=== PATIENT | male | born 1940 | race Caucasian/White ===

== ENCOUNTER → 2016-12-07 | Outpatient (CLI) | payer OTHER ==
[2015-05-15 12:28] VITALS: BP 148/66
--- NOTE | 2016-12-07 11:40 | NM ---
HISTORY: Abdominal pain. Study: Nuclear medicine HIDA scan with ejection fraction Comparison:None. Technique: Multiple scintigraphic images of the abdomen were obtained the intravenous administration of 5.4 mCi of technetium labeled Choletec. Following distention of the gallbladder with radiotracer a bottle of Ensure was given. An estimated gallbladder ejection fraction was calculated based on this physiologic response. Findings: Homogeneous uptake of radiotracer is seen throughout the liver. The intrabiliary ductal system is o bserved normally. The common hepatic and common bile duct grossly appear unremarkable with normal b iliary-bowel transit. The gallbladder is observed to fill normally. After the administration of Ensure, a normal gallbladder ejection fraction of 36% (normal > 35%) is observed. IMPRESSION: 1. Normal hepatobiliary imaging scan. 2. Normal gallbladder ejection fraction. Reported By:
== END ==
LOC: RAD 08:49
PROVIDERS: ATTEND Nurse Practitioner Family
DX: R10.11 Right upper quadrant pain (principal); R10.31 Right lower quadrant pain; R11.0 Nausea; R63.0 Anorexia; K21.9 Gastro-esophageal reflux disease without esophagitis
CPT/HCPCS: 78227

== ENCOUNTER → 2016-12-13 | Outpatient (CLI) | payer OTHER ==
[2015-05-15 12:28] VITALS: BP 148/66
[~2016-12-13] MED LIST: NS 100 ML IV 100 ML IV ONE
--- NOTE | 2016-12-13 10:53 | CT ---
HISTORY: Weight loss Study: CT abdomen pelvis with contrast Comparison: December 12, 2013 Technique: Axial post-contrast images with coronal and sagittal reformats. Dose reduction procedures were used with MA/kv adjusted for body size. Findings: The lung bases are clear. The liver, spleen, adrenal glands, and pancreas are within normal limits. No opaque stones are visible within the gallbladder. The kidneys are unobstructed and without stones or masses. There is a left renal cyst present. Additionally there is an 8.7 millimeter lesion proje cting laterally off the lower pole of the left kidney which does not meet the criteria for a simple cyst. However retrospectively it is unchanged when compared with the prior examination 3 years [facility] and is likely benign. Renal protocol CT may be of further diagnostic value if clinically indicate d. No enlarged intraperitoneal or retroperitoneal lymphadenopathy is identified. Scattered nonenlarg ed nodes are present. There are no findings suggestive of diverticulitis or colitis. Calcific athero sclerotic change is present in a nondilated abdominal aorta once again there is noted to be a stenos is of the aortic lumen just above the bifurcation with the luminal diameter measuring 7 millimeters which is slightly decreased when compared to 7.7 millimeters on the prior examination. Examination o f the pelvis demonstrated no evidence for pelvic masses, pelvic fluid, or pelvic lymphadenopathy. No bladder abnormality is identified. No lytic or blastic skeletal lesions are identified. IMPRESSION: 8.7 millimeter lesion projecting laterally from the lower pole left kidney which does not meet the c riteria for simple cyst but is totally unchanged when compared with the prior examination 3 years ea rlier likely indicating benignity. Atherosclerotic disease contributing to a stenosis of the distal abdominal aorta with a maximum diam eter of 7 millimeters as compared to 7.7 millimeters on the prior examination. Reported By:
== END | disposition home or self-care (01) | DRG 392 ==
LOC: RAD 08:34
PROVIDERS: ATTEND Nurse Practitioner Family
DX: R10.11 Right upper quadrant pain (principal); R10.31 Right lower quadrant pain; R11.0 Nausea; R63.4 Abnormal weight loss; R63.0 Anorexia; K21.9 Gastro-esophageal reflux disease without esophagitis
CPT/HCPCS: 74177; A4222

== ENCOUNTER → 2017-01-16 | Outpatient (CLI) | payer OTHER ==
[2015-05-15 12:28] VITALS: BP 148/66
[2017-01-16 11:01] LABS: CREATININE 1.4 mg/dL (0.70-1.30)
--- NOTE | 2017-01-16 13:12 | CT ---
HISTORY: Headaches Study: CT brain with and without contrast Comparison: December 25, 2012 Technique: Multiple axial images of the brain were obtained from the skull base to the vertex both before and a fter the administration of IV contrast. Findings: Imaging of the brain demonstrates no intracranial hemorrhage, mass effect, or midline shift. No extr a-axial fluid collection is identified. There is no CT evidence to suggest acute or early subacute i nfarct. Global atrophy is noted with ex vacuo dilatation of the ventricles. The basilar cisterns are patent. Postcontrast images demonstrate no abnormal contrast enhancement within the brain. The bony structures are intact. There are air-fluid levels present within the bilateral maxillary sinuses, r ight greater than left. Mucosal thickening is also identified within the maxillary sinuses, which garcia ve thickened and sclerotic mcdermott as well. These findings are most consistent with acute on chronic s inusitis. IMPRESSION: 1. Normal senescent changes. 2. Acute on chronic sinusitis Reported By:
== END ==
LOC: RAD 10:00
PROVIDERS: ATTEND Nurse Practitioner Family
DX: R51 Headache (principal); R42 Dizziness and giddiness; R11.0 Nausea; R63.4 Abnormal weight loss
CPT/HCPCS: 36415; 70470; 82565; 84520; A4222

== ENCOUNTER 2017-08-16 23:20 | Inpatient (IN) | payer OTHER ==
--- NOTE | 2017-08-16 23:41 | DR.GENAD ---
HPI - HPI Comment HPI Comment: CHEST PAIN PRECORDIA AND SUBSTERNAL AREA TIMES 2 WEEKS INTERMITTENTLY. PAIN PERSISITENT AND MORE INTENSE SINCE 18:00 PM TODAY. PAIN NON RADIATING. CAUSE WEAKNESS AND FATIGUE AND NAUSEA. NO FEVER. SPCABG. LAST CARDIAC CATH 18 MONTHS AGO. - Complaint/Symptoms Chief Complaint Doctors Comments: CHEST PAIN Chief Complaint:: PT C/O MIDSTERNAL CP. NO RADIATION. STATES THAT IT HAS BEEN OFF AND ON FOR 2 WEEKS BUT BECAM PERSISTENT AROUND 1900 TONIGHT. PT STATES HE TOO "6 OR 8 NITRO" AND IS PAIN FREE AT THIS TIME. - Nurses notes reviewed Nurses Notes Review: Yes - Source History Provided: Patient - Mode of Arrival Mode of Arrival: Ambulatory - Timing Onset of Chief Complaint: 08/16/17 - Duration Duration: Constant Duration: Days - Severity Severity: Moderate PMH - PMH Past Medical History: Yes Past Medical History: Hypertension Past Surgical History: Yes Surgical History: CABG/Valve Surgery - Family History History of Family Medical Conditions: Yes Family Medical History: Diabetes Mellitus, Hypertension - Social History Do you use any recreational Drugs:: No - infectious screening Have you traveled outside the country in the last 6 months?: No ROS - Review of Systems Constitutional: Weakness, Fatigue Eyes: No Symptoms Reported ENTM: No Symptoms Reported Respiratoy: Short of Breath. negative: Productive Cough, Wheezing, Hemoptysis Cardiovascular: Chest Pain Gastrointestinal/Abdominal: Nausea Genitourinary: No Symptoms Reported Neurological: No Symptoms Reported Musculoskeletal: No Symptoms Reported Integumentary: No Symptoms Reported Hematologic/Lymphatic: No Symptoms Reported Endocrine: No Symptoms Reported All Other Systems: Reviewed and Negative PE - Vital Signs Vitals: Temperature 98.7 F Pulse Rate [Left Radial] 62 Pulse Rate 77 Respiratory Rate 18 Blood Pressure [Right Arm] 153/73 Blood Pressure 194/83 O2 Sat by Pulse Oximetry 96 - General Limitations: No Limitations General Appearance: Alert - Head Head Exam: Normal Inspection - Eyes Eye exam: Normal Appearance - ENT ENT Exam: Normal External Ear Exam External Ear Exam: Normal External Inspection TM/Canal Exam: Bilateral Normal Nose Exam: Normal Nose Exam Mouth Exam: Normal Inspection Throat Exam: Normal Inspection - Neck Neck Exam: Trachea Midline - Chest Chest Inspection: Symmetric Chest Wall Rise - Respiratory Respiratory Exam: Normal Lung Sounds Bilat Respiratory Exam: Bilateral Rhonchi, Lower Rhonchi - Cardiovascular Cardiovascular Exam: Regular Rate, Normal Rhythm, Normal Heart Sounds - Abdominal Exam Abdominal Exam: Normal Bowel Sounds, Soft. negative: Tenderness - Extremities Extremities Exam: Normal Inspection - Back Back Exam: Normal Inspection - Neurologic Neurological Exam: Alert, Oriented X3 - Psychiatric Psychiatric Exam: Normal Affect, Normal Mood - Skin Skin Exam: Normal Color MDM - Differential Diagnosis Differential Diagnosis: CHEST PAIN Course - Treatment Treatment: SEE ORDERS. - Consultation Consultation Comments: DISCUSS PATIENT WITH DR. MONTEZ. HE WILL ADMIT PATIENT. - Education/Counseling Education/Counseling: Patient, Education Educated On: Diagnosis ROR - Labs Reviewed Laboratory Results Reviewed?: Yes Result Diagrams: 08/16/17 23:35 08/16/17 23:35 Laboratory: WBC 6.9 X10^3/uL (3.6-10.0) 08/16/17 23:35 RBC 4.13 X10^6/uL (4.7-6.0) L 08/16/17 23:35 Hgb 13.2 g/dL (13.5-18.0) L 08/16/17 23:35 Hct 38.4 % (42.0-54.0) L 08/16/17 23:35 MCV 92.8 fL (80.0-100.0) 08/16/17 23:35 MCH 31.9 pg (27.0-34.0) 08/16/17 23:35 MCHC 34.4 g/dL (33.0-35.0) 08/16/17 23:35 RDW 14.5 % (11.6-16.5) 08/16/17 23:35 Plt Count 160 X10^3/uL (150.0-450.0) 08/16/17 23:35 MPV 8.0 fL (7.4-11.0) 08/16/17 23:35 Neut % 68.6 % (42.0-75.0) 08/16/17 23:35 Lymph % 18.3 % (21.0-51.0) L 08/16/17 23:35 [facility] % 8.7 % (0.0-13.0) 08/16/17 23:35 Eos % 3.6 % (0.9-2.9) H 08/16/17 23:35 Baso % 0.8 % (0.2-1.0) 08/16/17 23:35 Neut # 4.8 x10^3/uL (2.2-4.8) 08/16/17 23:35 Lymph # 1.3 X10^3/uL (1.3-2.9) 08/16/17 23:35 [facility] # 0.6 x10^3/uL (0.3-0.8) 08/16/17 23:35 Eos # 0.2 x10^3/uL (0.0-0.2) 08/16/17 23:35 Baso # 0.1 X10^3/uL (0.0-0.1) 08/16/17 23:35 Absolute Nucleated RBC 0.0 /100WBC 08/16/17 23:35 INR Target Range - 08/16/17 23:35 INR 0.99 (0.8-1.3) 08/16/17 23:35 PTT 29.1 SECONDS (22.9-36.5) 08/16/17 23:35 PTT Comment - 08/16/17 23:35 Sodium 141 mmol/L (136-145) 08/16/17 23:35 Corrected Sodium 142 mmol/L (136-145) 08/16/17 23:35 Potassium 4.4 mmol/L (3.5-5.1) 08/16/17 23:35 Chloride 106 mmol/L (98-107) 08/16/17 23:35 Carbon Dioxide 28.6 mmol/L (21-32) 08/16/17 23:35 BUN 22 mg/dL (7-18) H 08/16/17 23:35 Creatinine 1.62 mg/dL (0.70-1.30) H 08/16/17 23:35 Est GFR (MDRD) Af Amer 53 (>60) L 08/16/17 23:35 Est GFR (MDRD) Non-Af 44 (>60) L 08/16/17 23:35 Glucose 130 mg/dL (65-99) H 08/16/17 23:35 Calcium 8.7 mg/dL (8.5-10.1) 08/16/17 23:35 Corrected Calcium TNP 08/16/17 23:35 Total Bilirubin 0.40 mg/dL (0.2-1.0) 08/16/17 23:35 AST 18 Units/L (15-37) 08/16/17 23:35 ALT 26 Units/L (12-78) 08/16/17 23:35 Alkaline Phosphatase 92 Units/L (46-116) 08/16/17 23:35 Creatine Kinase 58 Units/L (39-308) 08/16/17 23:35 CK-MB (CK-2) < 1.0 ng/mL (0-4.0) 08/16/17 23:35 CK/CKMB % Calc 1.7 % (<4) 08/16/17 23:35 Troponin I < 0.02 ng/mL (0-1.5) 08/16/17 23:35 B-Natriuretic Peptide 61.0 pg/mL (0-79) 08/16/17 23:35 Total Protein 6.9 g/dL (6.4-8.2) 08/16/17 23:35 Albumin 3.5 g/dL (3.4-5.0) 08/16/17 23:35 Globulin 3.4 g/dL (2.5-4.5) 08/16/17 23:35 Albumin/Globulin Ratio 1.0 Ratio (1.1-2.1) L 08/16/17 23:35 - XRAY XRAY Interpreted by: Self XRAY Findings: NO ACUTE FINDINGS - EKG Rhythm: NSR - Diagnosis Discharge Problem: Chest pain Qualifiers: Chest pain type: precordial pain Qualified Code(s): R07.2 - Precordial pain - Discharge Plan Disposition: ADMITTED INPATIENT Condition: Stable - Follow ups/Referrals - Instructions
[2017-08-16] MEDS ORDERED: ASPIRIN 81 MG CHEWTAB ONE (23:42)
[2017-08-16 23:44] LABS: BASOPHILS # (AUTO) 0.1 X10^3/uL (0.0-0.1); BASOPHILS % (AUTO) 0.8 % (0.2-1.0); EOSINOPHILS # (AUTO) 0.2 x10^3/uL (0.0-0.2); EOSINOPHILS % (AUTO) 3.6 % (0.9-2.9); HEMATOCRIT 38.4 % (42.0-54.0); HEMOGLOBIN 13.2 g/dL (13.5-18.0); LYMPHOCYTES # (AUTO) 1.3 X10^3/uL (1.3-2.9); LYMPHOCYTES % (AUTO) 18.3 % (21.0-51.0); MEAN CORPUSCULAR HEMOGLOBIN 31.9 pg (27.0-34.0); MEAN CORPUSCULAR HGB CONC 34.4 g/dL (33.0-35.0); MEAN CORPUSCULAR VOLUME 92.8 fL (80.0-100.0); MONOCYTES # (AUTO) 0.6 x10^3/uL (0.3-0.8); MONOCYTES % (AUTO) 8.7 % (0.0-13.0); NEUTROPHILS # (AUTO) 4.8 x10^3/uL (2.2-4.8); NEUTROPHILS % (AUTO) 68.6 % (42.0-75.0); PLATELET COUNT 160 X10^3/uL (150.0-450.0); RED BLOOD COUNT 4.13 X10^6/uL (4.7-6.0); RED CELL DISTRIBUTION WIDTH 14.5 % (11.6-16.5); WHITE BLOOD COUNT 6.9 X10^3/uL (3.6-10.0)
[2017-08-16] MEDS ORDERED: MORPHINE SULFATE INJ 4 MG IVP ONE (23:45)
[2017-08-16] MEDS ORDERED: ZOFRAN INJ 4 MG VIAL IVP ONE (23:45)
[2017-08-16] MEDS ORDERED: ASPIRIN 81 MG CHEWTAB PO SCH (23:45)
[2017-08-16] MEDS ORDERED: ZOFRAN INJ 4 MG VIAL ONE (23:47)
[2017-08-16] MEDS ORDERED: MORPHINE SULFATE INJ 4 MG ONE (23:47)
[2017-08-16] MEDS ORDERED: PEPCID 20 MG IV PREMIX* 20 MG/50 ML BAG IV ONE ×2 (23:47→23:48)
[2017-08-16 23:59] LABS: BLOOD UREA NITROGEN 22 mg/dL (7-18); CALCIUM 8.7 mg/dL (8.5-10.1); CARBON DIOXIDE 28.6 mmol/L (21-32); CHLORIDE 106 mmol/L (98-107); COR NA(FOR HYPERGLY) 142 mmol/L (136-145); CREATININE 1.62 mg/dL (0.70-1.30); SODIUM 141 mmol/L (136-145); TROPONIN I < 0.02 ng/mL (0-1.5); eGFR BLACK RACES 53 (>60); eGFR NON BLACK RACES 44 (>60)
[2017-08-17 00:03] LABS: ALANINE AMINOTRANSFERASE 26 Units/L (12-78); ALBUMIN 3.5 g/dL (3.4-5.0); ALKALINE PHOSPHATASE 92 Units/L (46-116); ASPARTATE AMINO TRANSFERASE 18 Units/L (15-37); CKMB % 1.7 % (<4); CREATINE KINASE 58 Units/L (39-308); CREATINE KINASE MB < 1.0 ng/mL (0-4.0); TOTAL PROTEIN 6.9 g/dL (6.4-8.2)
[2017-08-17] MEDS ORDERED: MORPHINE SULFATE INJ 2 MG INJ IVP PRN (01:10)
[2017-08-17] MEDS ORDERED: ZOFRAN INJ 4 MG VIAL IVP PRN (01:10)
[2017-08-17] MEDS ORDERED: NS 1000 ML 1,000 ML IV SCH (02:00)
[2017-08-17 02:29] VITALS: BMI 23.1
--- NOTE | 2017-08-17 03:26 | RAD ---
Chest AP portable Indication: Flu-like symptoms. Comparison: 08/31/2012. Findings: There is no pneumothorax or effusion. Scarring seen in the left lung base. Mild cardiomegal y sternotomy change noted. Minimal limitations due to overlying monitoring leads. Impression: Chronic lung changes, post CABG with prominent heart size. Reported By:
[2017-08-17 05:35] LABS: ALANINE AMINOTRANSFERASE 22 Units/L (12-78); ALBUMIN 3.1 g/dL (3.4-5.0); ALKALINE PHOSPHATASE 80 Units/L (46-116); ASPARTATE AMINO TRANSFERASE 17 Units/L (15-37); BASOPHILS # (AUTO) 0.1 X10^3/uL (0.0-0.1); BASOPHILS % (AUTO) 0.9 % (0.2-1.0); BLOOD UREA NITROGEN 19 mg/dL (7-18); CALCIUM 8.5 mg/dL (8.5-10.1); CARBON DIOXIDE 28.9 mmol/L (21-32); CHLORIDE 107 mmol/L (98-107); CHOL/HDL RATIO 2.8 (0.0-5.0); CHOLESTEROL 125 mg/dL (0-200); COR CA(FOR HYPOALB) 9.2 mg/dL (8.5-10.1); CREATININE 1.42 mg/dL (0.70-1.30); EOSINOPHILS # (AUTO) 0.2 x10^3/uL (0.0-0.2); EOSINOPHILS % (AUTO) 3.8 % (0.9-2.9); HDL CHOLESTEROL 44 mg/dL (40-60); HEMATOCRIT 35.6 % (42.0-54.0); HEMOGLOBIN 12.3 g/dL (13.5-18.0); LYMPHOCYTES # (AUTO) 1.2 X10^3/uL (1.3-2.9); LYMPHOCYTES % (AUTO) 21.7 % (21.0-51.0); MAGNESIUM 1.9 mg/dL (1.7-2.9); MEAN CORPUSCULAR HEMOGLOBIN 31.9 pg (27.0-34.0); MEAN CORPUSCULAR HGB CONC 34.5 g/dL (33.0-35.0); MEAN CORPUSCULAR VOLUME 92.5 fL (80.0-100.0); MEAN PLATELET VOLUME 8.3 fL (7.4-11.0); MONOCYTES # (AUTO) 0.5 x10^3/uL (0.3-0.8); MONOCYTES % (AUTO) 8.5 % (0.0-13.0); NEUTROPHILS # (AUTO) 3.7 x10^3/uL (2.2-4.8); NEUTROPHILS % (AUTO) 65.1 % (42.0-75.0); PLATELET COUNT 137 X10^3/uL (150.0-450.0); RED BLOOD COUNT 3.85 X10^6/uL (4.7-6.0); RED CELL DISTRIBUTION WIDTH 14.5 % (11.6-16.5); SODIUM 140 mmol/L (136-145); TOTAL PROTEIN 6.1 g/dL (6.4-8.2); TRIGLYCERIDES 100 mg/dL (0-150); WHITE BLOOD COUNT 5.6 X10^3/uL (3.6-10.0); eGFR BLACK RACES > 60 (>60); eGFR NON BLACK RACES 51 (>60)
[2017-08-17 05:54] LABS: CKMB % 2.2 % (<4); CREATINE KINASE 46 Units/L (39-308); CREATINE KINASE MB < 1.0 ng/mL (0-4.0); TROPONIN I < 0.02 ng/mL (0-1.5)
[2017-08-17] MEDS ORDERED: MAALOX or MYLANTA PO PRN (07:27)
[2017-08-17] MEDS: COREG TAB 3.125 MG PO SCH ×2 (07:57→09:36)
[2017-08-17] MEDS: PEPCID 20 MG IV PREMIX* 20 MG/50 ML BAG IV SCH ×2 (07:57→09:36)
[2017-08-17] MEDS: PLAVIX PO SCH ×2 (07:58→09:37)
[2017-08-17] MEDS: ASPIRIN 81 MG CHEWTAB PO SCH ×2 (07:58→09:36)
[2017-08-17] MEDS ORDERED: PATIENT'S HOME MEDICATION (Atorvastatin Calcium [Atorvastatin Calcium] 80 MG) PO SCH (09:00)
[2017-08-17] MEDS ORDERED: PEPCID 20 MG IV PREMIX* 20 MG/50 ML BAG IV SCH (09:00)
[2017-08-17] MEDS ORDERED: MORPHINE SULFATE INJ 4 MG IVP PRN (09:15)
[2017-08-17] MEDS ORDERED: NITRO-BID OINT 2% Multi-Dose tube ONE ×2 (09:25→09:33)
[2017-08-17] MEDS ORDERED: HEPARIN SODIUM IN D5W 25,000 UNITS/500 ML BAG IV ONE (09:25)
[2017-08-17] MEDS ORDERED: HEPARIN SODIUM INJ 5000 UNITS ONE (09:26)
[2017-08-17] MEDS ORDERED: HEPARIN SODIUM INJ 5000 UNITS IVP ONE (09:30)
[2017-08-17] MEDS ORDERED: HEPARIN SODIUM IN D5W 25,000 UNITS/500 ML BAG IV PRN (10:35)
[2017-08-17 11:32] LABS: ALANINE AMINOTRANSFERASE 22 Units/L (12-78); ALBUMIN 3.1 g/dL (3.4-5.0); ALKALINE PHOSPHATASE 78 Units/L (46-116); ASPARTATE AMINO TRANSFERASE 17 Units/L (15-37); BLOOD UREA NITROGEN 16 mg/dL (7-18); CALCIUM 8.7 mg/dL (8.5-10.1); CHLORIDE 108 mmol/L (98-107); COR CA(FOR HYPOALB) 9.4 mg/dL (8.5-10.1); CREATININE 1.46 mg/dL (0.70-1.30); SODIUM 142 mmol/L (136-145); TOTAL PROTEIN 6.1 g/dL (6.4-8.2); eGFR BLACK RACES 60 (>60); eGFR NON BLACK RACES 50 (>60)
[2017-08-17 11:47] LABS: CREATINE KINASE 50 Units/L (39-308); TROPONIN I < 0.02 ng/mL (0-1.5)
--- NOTE | 2017-08-17 13:48 | DR.H&P ---
H&P - History & Physical for Day of: H&P Date: 08/17/17 - Chief Complaint Chief Complaint: CHEST PAIN - Allergies Allergies/Adverse Reactions: Allergies Allergy/AdvReac Type Severity Reaction Status Date / Time No Known Drug Allergies Allergy Verified 08/17/17 00:35 - History of Present Illness History of Present Illness: patient is a 77-year-old white male who was an ER admission after presenting to the ER with complaints of chest pain. Patient has a history of coronary artery disease, last Approximately a year and a half to 2 years ago with stent placement at that time. Patient is under the care Dr. Soni at [facility] cardiology. patient denies any increased shortness of breath nausea or vomiting. Patient states he took multiple antacids prior to arrival without improvement. Patient states pain has been consistent to left chest, feels like a pressure unrelieved at this time. Plan to admit patient for further evaluation of chest pain, rule out acute LA with serial cardiac enzymes and EKG supplemental O2 blood pressure and cardiac monitoring. - Past Medical History Past Medical History: Hypertension - Past Surgical History Surgical History: CABG/Valve Surgery, Ortho Surgery - Family History Family Medical History: Diabetes Mellitus, Hypertension - Social History Does patient currently use any type of tobacco product: No Have you used tobacco products in the last 12 months: No Type of Tobacco Use: None Does any household member use tobacco: No Alcohol Use: None Drug Use: None - Medications Home Medications: Aspirin [Aspirin 81 mg Chewtab] 81 mg PO DAILY 08/16/17 [History Confirmed 08/17] Atorvastatin Calcium 80 mg PO DAILY 08/16/17 [History Confirmed 08/17/17] Carvedilol [Coreg Tab 3.125 mg] 3.125 mg PO DAILY 08/16/17 [History Confirmed ] Clopidogrel Bisulfate [PLAVIX TAB 75 MG *] 1 tab PO DAILY 08/16/17 [History Confirmed 08/17/17] Omeprazole 20 mg PO DAILY 08/16/17 [History Confirmed 08/17/17] Terazosin HCl 2 mg PO HS 08/16/17 [History Confirmed 08/17/17] - Review of Systems Constitutional: Malaise Eyes: No Symptoms Reported ENT: No Symptoms Reported Respiratory: No Symptoms Reported Cardiovascular: Chest Pain Gastrointestinal: No Symptoms Reported Genitourinary: No Symptoms Reported Musculoskeletal: Back Pain Skin: No Symptoms Reported Neurological: No Symptoms Reported - Physical Exam Vital Signs: Temperature 98.1 F Pulse Rate [Right Brachial] 65 Pulse Rate [Left Radial] 58 Pulse Rate 77 Respiratory Rate 20 Blood Pressure [Right Arm] 165/74 Blood Pressure 194/83 O2 Sat by Pulse Oximetry 99 Oriented: Normal Eyes: Normal, Diplopia Nose: Normal Throat: Normal Respiratory: Clear Throughout Cardiovascular: Normal. negative: Edema : Normal Auscultation: Bowel Sounds: Normal Palpation: Normal Tenderness: Normal Psychiatric: Normal Mood Description: Calm Speech Pattern: Clear, Appropriate - Assessment/Plan (1) Chest pain Qualifiers: Chest pain type: precordial pain Qualified Code(s): R07.2 - Precordial pain Status: Acute Plan: admit to ICU, serial cardiac enzymes, serial EKGs, blood pressure control , half inch Nitropaste anterior chest wall, heparin drip, supplemental O2. Plan to contact the patient's personal carer for potential transfer for cardiac catheterization. (2) Hypertension Status: Acute (3) CAD (coronary artery disease) Status: Chronic
[2017-08-17 14:29] VITALS: BP 156/94
[2017-08-17] MEDS ORDERED: HYTRIN PO SCH (21:00)
[2017-08-17] MEDS ORDERED: LIPITOR TAB 40 MG PO SCH (21:00)
[2017-08-17] MEDS ORDERED: TERAZOSIN HCL 2 MG PO SCH (21:00)
== END 2017-08-17 14:00 | disposition short-term general hospital (02) | DRG 313 ==
LOC: ER 23:29 → MED/SURG 08-17 01:12 → ICU 08-17 09:25 → OBSVTOIN 08-17 09:40
PROVIDERS: ADMIT Internal Medicine; ATTEND Internal Medicine
DX: R07.2 Precordial pain (principal); I10 Essential (primary) hypertension; R06.02 Shortness of breath; R94.31 Abnormal electrocardiogram [ECG] [EKG]; I25.10 Atherosclerotic heart disease of native coronary artery without angina pectoris; R94.4 Abnormal results of kidney function studies; Z79.01 Long term (current) use of anticoagulants
CPT/HCPCS: 36415; 71010; 80053; 80061; 82550; 82553; 83735; 83880; 84484; 85025; 85610; 85730; 93005; 94760; 96365; 96374; 96375; 99284; A4222; S0028; G0378; J1644; J2270; J2405